=== PATIENT | female | born 1980 | race Caucasian/White ===

== ENCOUNTER 2017-03-04 07:26 | Day surgery (SDC) | payer OTHER, MEDICAID ==
[~2017-03-04] VITALS: Ht 162.6 cm; Wt 132.0 kg
[~2017-03-04 07:26] MED LIST: BUPIVACAINE/PF 0.25% ONE; EPINEPHRINE 1 MG/ML, 1ML ONE; VENL150C PO
[2017-03-04] MEDS ORDERED: LACTATED RINGERS 1,000 ML IV SCH (07:44)
[2017-03-04 08:00] VITALS: BP 125/83
[2017-03-04 08:34] LABS: HCG UR OBC PASS
[2017-03-04] MEDS ORDERED: FUROSEMIDE 20 MG/2 ML ONE (09:15)
[2017-03-04] MEDS ORDERED: NEOMY/POLYMYXIN B GU IRR. 1 ML IRRIG ONE (09:15)
[2017-03-04] MEDS ORDERED: MIDAZOLAM 1 MG/ML, 2ML ONE (09:26)
[2017-03-04] MEDS ORDERED: FENTANYL PF 250 MCG/5ML ONE ×2 (09:26→10:23)
[2017-03-04] MEDS ORDERED: GLYCOPYRROLATE 0.2MG/1ML ONE (09:36)
[2017-03-04] MEDS ORDERED: ROCURONIUM 10 MG/ML ONE (09:36)
[2017-03-04] MEDS ORDERED: ONDANSETRON 2MG/ML, 2ML ONE ×2 (09:36→16:52)
[2017-03-04] MEDS ORDERED: CEFAZOLIN 1,000 MG ONE (09:36)
[2017-03-04] MEDS ORDERED: DEXAMETHASONE 4 MG/ML, 1ML ONE (09:36)
[2017-03-04] MEDS ORDERED: SUCCINYLCHOLINE 20 MG/ML, 10ML ONE (09:36)
[2017-03-04] MEDS ORDERED: NEOSTIGMINE 1 MG/ML, 10ML ONE (09:36)
[2017-03-04] MEDS ORDERED: PROPOFOL 10 MG/ML, 20ML ONE (09:36)
[2017-03-04] MEDS ORDERED: LABETALOL 5MG/ML, 20ML IV PRN (10:30)
[2017-03-04] MEDS ORDERED: hydrALAzine 20 MG/ML, 1ML IV PRN (10:30)
[2017-03-04] MEDS ORDERED: ACETAMINOPHEN 325 MG TABLET PO PRN ×2 (10:30→17:00)
[2017-03-04] MEDS ORDERED: ALBUTEROL SULFATE 2.5 MG/3 ML NPPB PRN (10:30)
[2017-03-04] MEDS ORDERED: ONDANSETRON 2MG/ML, 2ML IVPush PRN ×2 (10:30→17:00)
[2017-03-04] MEDS ORDERED: OXYcodone 5 MG/5 ML ORAL.SOL UDC PO PRN (10:30)
[2017-03-04] MEDS ORDERED: MEPERIDINE/PF 25MG/0.5ML IVPush PRN (10:30)
[2017-03-04] MEDS ORDERED: MIDAZOLAM 1 MG/ML, 2ML IV PRN (10:30)
[2017-03-04] MEDS ORDERED: PROMETHAZINE 25 MG/ML, 1ML IV PRN (10:30)
[2017-03-04] MEDS ORDERED: ACETAMINOPHEN 650 MG/20.3 ML UDC ONE (12:04)
[2017-03-04] MEDS ORDERED: FENTANYL PF 100 MCG/2ML ONE (12:05)
[2017-03-04] MEDS ORDERED: OXYcodone 5 MG/5 ML ORAL.SOL UDC ONE (12:05)
[2017-03-04] MEDS: FENTANYL PF 100 MCG/2ML IV PRN ×2 (12:09→12:17)
[2017-03-04] MEDS ORDERED: HYDROmorphone 2 MG/ML, 1ML ONE (12:25)
[2017-03-04] MEDS: HYDROmorphone 1 MG/ML, 1ML IV PRN ×2 (12:27→12:41)
[2017-03-04] MEDS ORDERED: OXYcodone/APAP 5/325MG TABLET PO PRN (17:00)
[2017-03-04] MEDS ORDERED: HYDROcodone/APAP 5/325 TABLET PO PRN (17:00)
[2017-03-04] MEDS ORDERED: HYDROmorphone 2 MG/ML, 1ML IVPush PRN (17:00)
[2017-03-04] MEDS ORDERED: IBUPROFEN 600 MG TABLET PO SCH (17:00)
[2017-03-04] MEDS ORDERED: ZOLPIDEM 5MG TABLET PO PRN (17:00)
[2017-03-04] MEDS ORDERED: DOCUSATE 100 MG CAPSULE PO SCH (21:00)
[2017-03-04] MEDS ORDERED: SIMETHICONE 80 MG CHEW TAB PO SCH (21:00)
== END 2017-03-04 19:15 | disposition home or self-care (01) ==
LOC: OUT 07:26
PROVIDERS: ATTEND Obstetrics & Gynecology Female Pelvic Medicine and Reconstructive Surgery
DX: N81.3 Complete uterovaginal prolapse (principal); N39.46 Mixed incontinence; N83.8 Other noninflammatory disorders of ovary, fallopian tube and broad ligament; G43.909 Migraine, unspecified, not intractable, without status migrainosus; F32.9 Major depressive disorder, single episode, unspecified; E66.01 Morbid (severe) obesity due to excess calories; Z68.43 Body mass index [BMI] 50.0-59.9, adult; Z98.890 Other specified postprocedural states
CPT/HCPCS: 57265; 57282; 57288; 58552; 81003; 81025; 88307; C1771; J0171; J0330; J0690; J1100; J1170; J2250; J2405; J2704; J2710; J3010; J3490; J7120; J1940

== ENCOUNTER 2017-03-14 18:07 | Inpatient (IN) | payer OTHER, MEDICAID ==
[~2017-03-14] VITALS: Ht 162.6 cm; Wt 137.4 kg
[~2017-03-14 18:07] MED LIST changes: -BUPIVACAINE/PF 0.25% ONE; -EPINEPHRINE 1 MG/ML, 1ML ONE
[2017-03-14] MEDS ORDERED: ONDANSETRON 2MG/ML, 2ML IVPush ONE (18:30)
[2017-03-14] MEDS ORDERED: SODIUM CHLORIDE FLUSH 10ML SYR IVF ONE (18:30)
[2017-03-14] MEDS ORDERED: SODIUM CHLORIDE 0.9% 1,000ML IVBOLUS ONE (18:30)
[2017-03-14] MEDS ORDERED: MORPHINE SULFATE 4 MG/ML, 1ML IVPush PRN (18:30)
[2017-03-14] MEDS ORDERED: ONDANSETRON 2MG/ML, 2ML ONE (18:49)
[2017-03-14] MEDS ORDERED: MORPHINE SULFATE 4 MG/ML, 1ML ONE (18:49)
[2017-03-14 19:13] LABS: ASPARTATE AMINO TRANSFERASE 16 U/L (15-37); BLOOD UREA NITROGEN 12 mg/dL (7-18)
[2017-03-14 19:40] LABS: DIFF TOTAL CELLS COUNTED 100 CELL DIFF
[2017-03-14 19:41] LABS: VERIFY COUNTS? YES
[2017-03-14] MEDS ORDERED: OMNIPAQUE 350 MG/ML, 100ML BOTTLE ONE (19:47)
[2017-03-14] MEDS ORDERED: PIPERACILLIN/TAZO/PMX 3.375GM 50 ML IV ONE (20:30)
[2017-03-14] MEDS ORDERED: AMPICILLIN 1 GM in SODIUM CHLORIDE 0.9% 50 ML IV ONE (20:54)
[2017-03-14] MEDS ORDERED: GENTAMICIN PER PHARMACY MC ONE (20:55)
[2017-03-14] MEDS ORDERED: GENTAMICIN 520 MG in SODIUM CHLORIDE 0.9% 100 ML IV SCH (21:00)
[2017-03-14] MEDS ORDERED: METRONIDAZOLE PMX 500MG/100ML 100 ML IV ONE (21:00)
[2017-03-14] MEDS ORDERED: GENTAMICIN 520 MG in SODIUM CHLORIDE 0.9% 100 ML IV ONE (21:03)
[2017-03-14] MEDS ORDERED: PHARMACOKINETIC CONSULTATION MC ONE ×2 (21:30→23:45)
[2017-03-14] MEDS ORDERED: GENTAMICIN PER PHARMACY MC PRN (23:30)
[2017-03-14] MEDS ORDERED: PHARMACOKINETIC MONITORING MC PRN (23:45)
[2017-03-14] MEDS: HYDROmorphone 1 MG/ML, 1ML IV PRN (23:47)
[2017-03-15] MEDS: LACTATED RINGERS 1,000 ML IV SCH (00:20)
[2017-03-15] MEDS: METRONIDAZOLE PMX 500MG/100ML 100 ML IV SCH ×3 (00:22→20:07)
[2017-03-15 01:02] VITALS: BP 117/72
[2017-03-15] MEDS: AMPICILLIN 1 GM in SODIUM CHLORIDE 0.9% 50 ML IV SCH ×3 (01:23→19:16)
[2017-03-15 02:09] VITALS: BP 114/69
[2017-03-15] MEDS: GENTAMICIN 440 MG in SODIUM CHLORIDE 0.9% 100 ML IV SCH (02:29)
[2017-03-15] MEDS: HYDROmorphone 1 MG/ML, 1ML IV PRN ×2 (02:30→10:09)
[2017-03-15 07:34] VITALS: BP 106/69
[2017-03-15] MEDS ORDERED: FENTANYL PF 100 MCG/2ML ONE (08:05)
[2017-03-15] MEDS ORDERED: MIDAZOLAM 1 MG/ML, 5ML ONE (08:05)
[2017-03-15] MEDS ORDERED: NALOXONE 1 MG/ML, 2ML ONE (08:06)
[2017-03-15] MEDS ORDERED: FLUMAZENIL 0.1 MG/1 ML, 5ML ONE (08:06)
[2017-03-15] MEDS ORDERED: LIDOCAINE 1%, 20ML ONE (08:10)
[2017-03-15] MEDS: OXYcodone/APAP 5/325MG TABLET PO PRN ×2 (12:56→19:17)
[2017-03-15] MEDS ORDERED: ACETAMINOPHEN 325 MG TABLET PO PRN (13:00)
[2017-03-15] MEDS ORDERED: ZOLPIDEM 10MG TABLET PO PRN (13:00)
[2017-03-15 13:22] VITALS: BP 96/40
[2017-03-15] MEDS: IBUPROFEN 600 MG TABLET PO PRN (14:32)
[2017-03-15 20:03] VITALS: BP 93/53
[2017-03-16 00:10] VITALS: BP 95/60
[2017-03-16] MEDS: OXYcodone/APAP 5/325MG TABLET PO PRN ×4 (01:14→20:30)
[2017-03-16] MEDS: LACTATED RINGERS 1,000 ML IV SCH ×2 (03:19→11:58)
[2017-03-16] MEDS: GENTAMICIN 440 MG in SODIUM CHLORIDE 0.9% 100 ML IV SCH (03:24)
[2017-03-16 03:26] VITALS: BP 100/49
[2017-03-16 04:29] VITALS: BP 88/48
[2017-03-16] MEDS: AMPICILLIN 1 GM in SODIUM CHLORIDE 0.9% 50 ML IV SCH ×4 (04:56→23:28)
[2017-03-16] MEDS ORDERED: SODIUM CHLORIDE 0.9%, 500ML IVBOLUS ONE (05:00)
[2017-03-16] MEDS: METRONIDAZOLE PMX 500MG/100ML 100 ML IV SCH ×3 (05:20→22:17)
[2017-03-16 07:08] VITALS: BP 90/45
[2017-03-16 13:28] VITALS: BP 96/66
[2017-03-16 18:25] VITALS: BP 104/64
[2017-03-17 01:25] VITALS: BP 100/64
[2017-03-17] MEDS: AMPICILLIN 1 GM in SODIUM CHLORIDE 0.9% 50 ML IV SCH ×4 (04:54→23:12)
[2017-03-17] MEDS: OXYcodone/APAP 5/325MG TABLET PO PRN ×4 (04:59→20:20)
[2017-03-17] MEDS: METRONIDAZOLE PMX 500MG/100ML 100 ML IV SCH ×3 (05:34→21:44)
[2017-03-17 07:50] VITALS: BP 149/51
[2017-03-17] MEDS: GENTAMICIN 440 MG in SODIUM CHLORIDE 0.9% 100 ML IV SCH (12:22)
[2017-03-17] MEDS: VENLAFAXINE 75 MG CAP ER PO SCH (12:23)
[2017-03-17] MEDS: LACTATED RINGERS 1,000 ML IV SCH (13:59)
[2017-03-17 14:22] VITALS: BP 105/65
[2017-03-17] MEDS: IBUPROFEN 600 MG TABLET PO PRN (15:43)
[2017-03-17] MEDS ORDERED: OXYcodone/APAP 5/325MG TABLET ONE (16:14)
[2017-03-17 20:22] VITALS: BP 106/46
[2017-03-18] MEDS: OXYcodone/APAP 5/325MG TABLET PO PRN ×4 (00:24→14:39)
[2017-03-18 02:12] VITALS: BP 108/68
[2017-03-18] MEDS: AMPICILLIN 1 GM in SODIUM CHLORIDE 0.9% 50 ML IV SCH ×3 (05:05→17:23)
[2017-03-18] MEDS: METRONIDAZOLE PMX 500MG/100ML 100 ML IV SCH ×2 (05:46→13:52)
[2017-03-18 07:28] VITALS: BP 114/71
[2017-03-18] MEDS: LACTATED RINGERS 1,000 ML IV SCH (08:29)
[2017-03-18] MEDS: VENLAFAXINE 75 MG CAP ER PO SCH (08:29)
[2017-03-18 12:42] VITALS: BP 133/82
[2017-03-18] MEDS: GENTAMICIN 440 MG in SODIUM CHLORIDE 0.9% 100 ML IV SCH (12:53)
== END 2017-03-18 18:20 | disposition home or self-care (01) | DRG 872 ==
LOC: ED 19:59 → EDIP 20:23 → 4NOR 21:10
PROVIDERS: ADMIT Obstetrics & Gynecology Female Pelvic Medicine and Reconstructive Surgery; ATTEND Obstetrics & Gynecology Female Pelvic Medicine and Reconstructive Surgery
PROC: 0W9J30Z Drainage of Pelvic Cavity with Drainage Device, Percutaneous Approach (ICD-10-PCS; principal; 2017-03-15)
DX: A41.9 Sepsis, unspecified organism (principal); N73.9 Female pelvic inflammatory disease, unspecified; Z90.710 Acquired absence of both cervix and uterus; Z90.79 Acquired absence of other genital organ(s)
CPT/HCPCS: 36415; 49405; 74177; 80048; 80076; 80170; 81001; 82040; 83605; 83690; 85025; 85610; 87040; 87070; 87075; 87086; 87205; 96374; 96375; 99156; 99157; C1894; J0290; J1170; J2250; J2405; J3010; J3490; Q9967; C1729; C1769; J1580; J2310; J7030; J7040; J7120